=== PATIENT | male | born 1980 | race Caucasian/White ===

== ENCOUNTER → 2019-09-04 | Outpatient (CLI) | payer BC ==
[2019-09-09 20:07] LABS: QUANTIFERON MITOGEN VALUE >10.00 IU/mL (.); QUANTIFERON NIL VALUE 0.13 IU/mL (.); QUANTIFERON TB1 AG VALUE 0.16 IU/mL (.); QUANTIFERON TB2 AG VALUE 0.15 IU/mL (.); QUANTIFERON-TB GOLD PLUS Negative (Negative)
== END ==
LOC: LB.LAB 12:13
PROVIDERS: ATTEND Nurse Practitioner Primary Care
DX: Z51.81 Encounter for therapeutic drug level monitoring (principal); Z79.899 Other long term (current) drug therapy
CPT/HCPCS: 36415; 80053; 85027; 86480